=== PATIENT | female | born 1990 | race Hispanic/Latino ===

== ENCOUNTER 2022-08-05 05:46 | Day surgery (SDC) | payer BC ==
[2022-08-04 16:30] VITALS: BP 117/73
[2022-08-04 16:38] LABS: BASOPHILS % (AUTO) 0.7 % (0.0-5.0); EOSINOPHILS % (AUTO) 2.2 % (0.0-8.0); HEMATOCRIT 36.8 % (36-48); LYMPHOCYTES % (AUTO) 37.6 % (21.0-51.0); MEAN CORPUSCULAR HEMOGLOBIN 29.7 pg (27.0-33.0); MEAN CORPUSCULAR HGB CONC 32.6 g/dL (32.0-36.0); MEAN CORPUSCULAR VOLUME 91.1 fL (79-99); MONOCYTES % (AUTO) 6.5 % (3.0-13.0); NEUTROPHILS % (AUTO) 52.8 % (40.0-77.0); PLATELET COUNT (AUTO) 197 K/uL (130-400); RED BLOOD CELL COUNT(AUTO) 4.04 MIL/uL (4.00-5.50); RED CELL DISTRIBUTION WIDTH 14.2 % (11.0-15.5); WHITE BLOOD COUNT (AUTO) 5.6 K/uL (4.8-10.8)
[2022-08-04 16:49] LABS: INR 0.94 (0.85-1.15); PROTHROMBIN TIME 10.3 SEC (9.6-11.6)
[2022-08-04 16:51] LABS: PARTIAL THROMBOPLASTIN TIME 26.5 SEC (26.3-35.5)
[2022-08-04 16:53] LABS: APPEARANCE,URINE CLEAR (CLEAR); BILIRUBIN,URINE NEGATIVE (NEGATIVE); COLOR,URINE COLORLESS (YELLOW); GLUCOSE, URINE (UA) NEGATIVE (NEGATIVE); KETONES,URINE NEGATIVE (NEGATIVE); LEUKOCYTE ESTERASE ,URINE NEGATIVE Leu/uL (NEGATIVE); NITRATE,URINE NEGATIVE (NEGATIVE); OCCULT BLOOD,URINE MODERATE (NEGATIVE); PROTEIN,URINE NEGATIVE (NEGATIVE); UROBILINOGEN,URINE 0.2 mg/dL (0.2-1.0)
[2022-08-04 17:02] LABS: BACTERIA,URINE RARE /HPF (None Seen); RBC,URINE 0-1 /HPF (0-1); SQUAMOUS EPITHELIAL CELL,UR RARE /HPF (0-2)
[~2022-08-05] VITALS: Ht 182.9 cm; Wt 81.6 kg
[2022-08-05] VITALS (18 sets, daily range): BP systolic 96–121; BP diastolic 45–81
[~2022-08-05 05:46] MED LIST: PREN-64 PO
[2022-08-05] MEDS ORDERED: LACTATED RINGERS 1000ML 1,000 ML IV ONE (07:04)
[2022-08-05] MEDS ORDERED: METHYLENE BLUE 5 MG/ML AMP ONE (10:34)
[2022-08-05] MEDS ORDERED: PROPOFOL 10 MG/ML 20ML VIAL IV ONE ×2 (13:22→14:24)
[2022-08-05] MEDS ORDERED: SUCCINYLCHOLINE 200MG/10ML SYR ONE (13:22)
[2022-08-05] MEDS ORDERED: ROCURONIUM 10MG/1ML SYR 10 MG/ML ML ONE (13:23)
[2022-08-05] MEDS ORDERED: FENTANYL CITRATE PF 50 MCG/1 ML 2ML VIAL ONE (13:23)
[2022-08-05] MEDS ORDERED: MIDAZOLAM HCL 1 MG/ML 2ML VIAL ONE ×2 (13:23→15:20)
[2022-08-05] MEDS ORDERED: GLYCOPYRROLATE 1 MG/5 ML SYRINGE ONE ×2 (14:34→15:04)
[2022-08-05] MEDS ORDERED: NEOSTIGMINE 5MG/5ML SYR IV ONE (14:34)
[2022-08-05] MEDS ORDERED: MEPERIDINE-PF 25 MG/ML SYG ONE ×2 (14:56→15:09)
[2022-08-05] MEDS ORDERED: ONDANSETRON 4MG INJ ONE (15:12)
[2022-08-05] MEDS ORDERED: METOCLOPRAMIDE 10 MG/2 ML VIAL ONE (15:12)
== END 2022-08-05 17:05 | disposition home or self-care (01) ==
LOC: DAH 05:46
PROVIDERS: ATTEND Obstetrics & Gynecology
DX: R10.2 Pelvic and perineal pain (principal); N73.6 Female pelvic peritoneal adhesions (postinfective); E66.01 Morbid (severe) obesity due to excess calories; F32.A Depression, unspecified; Z90.49 Acquired absence of other specified parts of digestive tract; Z68.25 Body mass index [BMI] 25.0-25.9, adult
CPT/HCPCS: 85025; 85610; 85730; 86850; 86900; 86901; 87426; 81001; 81025; 36415; 58350; A6260; A4351; A4606; J7120; J3010; J0330; J3490 ×2; J2710; J2250 ×2; J2704 ×2; J2405; Q9968; J2175 ×2; J2765; C1769 ×2; A4649 ×3; A4215 ×2; A4223; A4222; A4221; A4663